=== PATIENT | female | born 2005 | race Caucasian/White ===

== ENCOUNTER 2025-11-02 08:07 | Outpatient (CLI) | payer OTHER | END 2025-11-02 08:08 | disposition home or self-care (01) | LOC: SCSMRI 08:07 | PROVIDERS: ATTEND Physical Medicine & Rehabilitation | DX: M54.50 Low back pain, unspecified (principal); M51.26 Other intervertebral disc displacement, lumbar region; M48.061 Spinal stenosis, lumbar region without neurogenic claudication | CPT/HCPCS: 72148 ==